=== PATIENT | female | born 1935 | race Caucasian/White ===

== ENCOUNTER 2024-07-12 17:29 | Emergency (ER) | payer OTHER, MEDICAID, SELFPAY ==
[2024-07-12 17:34] VITALS: BP 106/50; PULSE 71; RESP 19; TEMP 36.7; O2SAT 99
--- NOTE | 2024-07-12 18:02 | XR_ITS ---
Examination: Knee bilateral, 6 views Technique: Knee AP, lateral, oblique each knee total 6 views Date and time of exam: July 12, 2024 1832 hours INDICATIONS: Bilateral knee pain several days. FINDINGS: Severe osteopenia Bilateral advanced tricompartment osteoarthritis Bilateral mild to moderate knee effusions No fracture or dislocation involving either knee IMPRESSION: Bilateral advanced tricompartment osteoarthritis
[2024-07-12 18:34] VITALS: BP 113/58; PULSE 100; PULSE 59; RESP 15; RESP 18; TEMP 36.6; O2SAT 98; O2SAT 99; BMI 22.6
--- NOTE | 2024-07-12 18:34 | PC.NURSE ---
Addendum entered by Rajinder Nunes RN 07/12/24 18:46: @1834- Per EMS rpeorts, pt has modified DNR code status. Original Note: BIBA; per EMS reports, Pt coming from alf; the doctors there were concerned for her knee pain & swelling bilaterally. Pt has arthritis. MD's wanted ER to evaluate pt's arthritis and make sure nothing is broken. Pt has hx of DM, A.fib, pacemaker, hypertension, & bipolar disorder. Pt connected to monitor at this time.
--- NOTE | 2024-07-12 19:13 | PD.EDADULT ---
ED General RME/HPI General Chief complaint: General Adult/Misc Complain Stated complaint: KNEE PAIN Time Seen by Provider: 07/12/24 18:01 Arrival date/time: 07/12/24 17:29 CC: Bilateral knee pain insidious onset approximately 36 hours ago patient states she has a history of arthritis with the pain send patient denies fall repetitive motion. Is hard of. Localized pain is 1-2 on a 10 scale patient present to the ER via EMS reports stable vital signs after she refused to have x-rays done there because of the pain was too great in her knees. Patient denies any other symptoms including chest pain shortness of breath or difficulty breathing. Related Data Home Medications ?Medication ?Instructions ?Recorded ?Confirmed lithium carbonate 300 mg 300 mg PO BID ##0 03/23/14 04/04/23 tablet,extended release (Lithobid) valsartan 320 mg tablet (Diovan) 320 mg PO QDAY #0 tabs 03/23/14 04/04/23 aspirin 81 mg tablet,delayed 81 mg PO QDAY ##0 06/19/15 04/04/23 release rivaroxaban 10 mg tablet (Xarelto) 10 mg PO QDAY #0 tabs 10/07/15 04/04/23 atenolol 25 mg tablet 25 mg PO QDAY 06/09/20 04/04/23 lovastatin 40 mg tablet 40 mg PO HS 06/09/20 04/04/23 metformin 500 mg tablet 500 mg PO QDAY 06/09/20 04/04/23 donepezil 5 mg tablet (Aricept) 5 mg PO QDAY 04/04/23 04/04/23 megestrol 400 mg/10 mL (40 mg/mL) 400 mg PO BID 04/04/23 04/04/23 oral suspension paroxetine HCl 10 mg tablet (Paxil) 10 mg PO HS 04/04/23 04/04/23 Previous Rx's ?Medication ?Instructions ?Recorded neomycin-bacitracn Zn-polymyx 3.5 1 applicatio topical BID #15 grams 12/17/22 mg-400 unit-5,000 unit/gram top oint (Triple Antibiotic) doxycycline monohydrate 100 mg 100 mg PO BID #20 caps 04/22/24 capsule Allergies Allergy/AdvReac Type Severity Reaction Status Date / Time Sulfa (Sulfonamide Allergy Severe Hives Verified 01/15/23 11:16 Antibiotics) levofloxacin [From Levaquin] AdvReac Severe NAUSEA,VOMI Verified 01/15/23 11:16 TING Review of Systems Review of Systems Narrative Review of Systems: GEN: No fever, no chills, no weight loss EYES: No discharge, no visual changes, no pain HEENT: No ear pain, no congestion, no sore throat PULM: No shortness of breath, no cough, no congestion CV: No chest pain, no dyspnea on exertion, no palpitations GI: No nausea, no vomiting, no diarrhea, no pain, no constipation : No frequency, no urgency, no dysuria MUSC/SKEL: No joint pain, no back pain SKIN: No rash PSYCH: No hallucinations, no depression HEME/LYMPH: No easy bleeding or bruising tendencies NEURO: No weakness, no headache Past Medical History Past Medical History NEUROLOGIC: Positive Dementia; Negative Neurological Disorders, Cerebrovascular Accident, Transient Ischemic Attacks (TIA), Alzheimer's Disease, Parkinson's Disease, Brain Tumor, Meningitis, Seizures, Epilepsy, Multiple Sclerosis, Cerebral Palsy, Amyotrophic Lateral Sclerosis (ALS/Lynnette Gehrig's), Guillain-[place] Syndrome, Spina Bifida, Paralysis, Peripheral Neuropathy, Goodman's Palsy, Subdural Hematoma, Migraine, Head Trauma, Spinal Cord Injury or Traumatic Brain Injury CARDIAC: Positive Cardiac Disorders (A. Fib), Coronary Artery Disease, Hypercholesterolemia and Hypertension; Negative Myocardial Infarction, Cardiac Arrhythmia, Atrial Fibrillation, Angina, Heart Murmur, Atherosclerotic Heart Disease, Peripheral Vascular Disease, Aneurysm, Congestive Heart Failure, Congenital Heart Disease, Valvular Heart Disease, Rheumatic Fever, Cardiomyopathy, Edema, Pericarditis, Cellulitis, Deep Vein Thrombosis, Hypotension or Varicose Veins RESPIRATORY: Negative Chronic Obstructive Pulmonary Disease (COPD), Asthma, Bronchitis, Emphysema, Pneumonia, Pulmonary Fibrosis, Cystic Fibrosis, Tuberculosis, Pulmonary Embolism, Pulmonary Edema or Sleep Apnea GASTROINTESTINAL: Negative Gastrointestinal Disorders, Hepatitis, Cirrhosis, Pancreatitis, Celiac Disease, Gall Bladder Disease, Gastrointestinal Bleed, Esophageal Varices, Aponte's Esophagus, Colitis, Ulcerative Colitis, Diverticulitis, Diverticulosis, Ulcer, Colorectal Cancer, Irritable Bowel, Crohn's Disease, Obstructive Bowel, Hiatal Hernia, Hemorrhoids or Gastroesophageal Reflux Disease GENITOURINARY: Negative Genitourinary Disorders, Renal Disease, Kidney Stones, Polycystic Kidney Disease, Neurogenic Bladder, Inguinal Hernia, Dialysis, Prostate Cancer or Benign Prostatic Hyperplasia REPRODUCTIVE: Negative Breast Cancer, Endometriosis, Genital Herpes, Gonorrhea, Pelvic Inflammatory Disease, Syphilis or Testicular Cancer MUSCULOSKELETAL: Negative Musculoskeletal Disorders, Myasthenia Gravis, Marfan's Syndrome, Bone Cancer, Arthritis, Rheumatoid Arthritis, Osteoporosis, Degenerative Disk Disease, Gout, Scoliosis, Carpal Tunnel Syndrome, Fibromyalgia, Fractures, Degenerative Joint Disease, Osteomyelitis or Poliovirus ENT: Positive Deafness; Negative Cataracts, Glaucoma, Blind, Retinal Detachment, Macular Degeneration, Ear Infection, Head Trauma or Eye Prosthesis ENDOCRINE: Positive Endocrine Disorders and Diabetes Mellitus Type 2; Negative Diabetes Mellitus Type 1, Hypoglycemia, Rosman's Syndrome, Jay's Disease, Hyperthyroidism, Hypothyroidism, Parathyroid Disease, Pituitary Disease, Systemic Lupus Erythematosus, Syndrome of Inappropriate Antidiuretic Hormone (SIADH), Adrenal Disease or Graves' Disease HEMATOLOGIC: Negative Blood Disorders, Anemia, Leukemia, Hemophilia, Thalassemia, Sickle Cell Disease or Clotting Problems PSYCHO/SOCIAL: Positive Bipolar Disorder, Depression and Anxiety; Negative Psychiatric Problems, Schizophrenia, Recreational Drug Use, Behavior Problems, Self-Mutilation, Attention Deficit Disorder, Attention Deficit Hyperactivity Disorder, Depression, Post Traumatic Stress Disorder or Eating Disorder OTHER HISTORY: Positive Falls; Negative Hospitalization, Autoimmune Disease, Down Syndrome, Autism, Developmental Delay, Shingles, Blood Transfusions, Blood Transfusion Reaction, Anesthesia Reactions, Organ Transplant, Chemotherapy, Radiation Therapy, Hyperbaric Therapy, MRSA, VRSA, Vancomycin-Resistant Enterococci, Human Immunodeficiency Virus (HIV), Chicken Pox, Measles, Mumps, Rubella ([place] Measles), Pertussis, Clostridium Difficile, Cancer, Breast Cancer, Cervical Cancer, Colorectal Cancer, Lung Cancer, Ovarian Cancer, Prostate Cancer or Testicular Cancer Family History FAMILY HISTORY: Negative Family Psychiatric Problems, Family Respiratory Disorders, Family Cardiac Disorders, Family Gastrointestinal Problems, Family Cancer, Family Surgery or Family Anesthesia Reaction Surgical History SURGICAL: Positive Pacemaker; Negative Cardiac Surgery, Open Heart Surgery, Coronary Artery Bypass Graft, Valve Replacement, Vascular Surgery, Coronary Stent, Cardiac Catheterization, Angiogram, Auto Implanted Cardiovert Defib, Carotid Endarterectomy, Endocrine Surgery, Thyroidectomy, Ear Surgery, Tympanostomy Tube, Eye Surgery, Nose Surgery, Oral Surgery, Tonsillectomy, Adenoidectomy, Cochlear Implant, Corneal Transplant, Throat Surgery, Abdominal Surgery, Tracheostomy, Gastric Bypass Surgery, Gastrostomy, Bowel Surgery, Nephrectomy, Transurethral Resection, Joint Replacement, Amputation, Open Reduction Internal Fixation, Arthroscopy, Neurologic Surgery, Brain Shunt, Mastectomy, Lumpectomy, Hysterectomy, Tubal Ligation, Section or Organ Transplant Social History SMOKING STATUS: Never smoker SECOND HAND EXPOSURE: No SUBSTANCE USE: does not use ED Exam Narrative Physical exam: [General: Frail, deconditioned but not in any acute distress Head normocephalic HEENT: Within acceptable limits Neck is supple nontender Chest equal chest rise nontender to palpation Respiratory: Clear to auscultation no wheezes crackles or rubs CV: Rate rhythm is regular no murmurs rubs or clicks Abdomen is soft nontender no masses positive bowel sounds all 4 quadrants Back: No CVA tenderness no spinous process tenderness from cervical spine thoracic and lumbar spine Skin: Intact no petechiae rash induration ulceration or crepitus Extremities: Moving all extremity against resistance cap refill less than 2 seconds neurosensory intact Neuro: Awake alert oriented x3 Glascow coma 15 no focal deficits] Course Quality Measures none Orders Category Date Time Status XR knee BI 3V Stat Exams 07/12/24 18:02 Completed Vital Signs Vital signs: Vital Signs Temperature 98.1 F 07/12/24 17:34 Pulse Rate 71 07/12/24 17:34 Respiratory Rate 19 07/12/24 17:34 Blood Pressure 106/50 L 07/12/24 17:34 Pulse Oximetry (%) 99 07/12/24 17:34 Oxygen Delivery Method Room Air 07/12/24 17:34 MDM Patient data External records reviewed:: [facility] previous records and EMS form Clinical information provided by:: patient and EMS Social determinants that could affect healthcare access:: none Patient has the following chronic illnesses:: Arthritis hypertension diabetes on blood thinners How is presenting disease/condition affected by chronic disease/condition?: uneffected by Evaluation data The following diagnostics were reviewed and interpreted by me:: radiology exam(s) Lab and/or radiology exams considered but not ordered:: Knee shows significant osteopenia with osteoarthritis. Interpretation Summary: Arthritis of the knees no acute fracture Medications Medications considered but not ordered:: None Medication administrations:: None Consultations Consultation(s) initiated? (list below): No Diagnosis Differential Diagnosis ED Complaint MDM: Bilateral knee fracture, septic joint, osteoarthritis Most likely diagnosis given after review of the tests above:: Osteoarthritis Admission Indicated Admission indicated?: not indicated Explain why admission is indicated or not indicated:: Stable for outpatient follow-up Admission Request Was there a request for admission?: No Disposition Plan Disposition Plan: Discharge Discharge Attestation Discharge Attestation: The patient and all family members were given an opportunity to ask questions and understood the discharge instructions. Discharge instructions specifically effects, indications for sooner follow up or return to the emergency department, and the expected course of current diagnosis. Patient condition: Stable Medical Decision Making Differential Diagnosis Differential Diagnosis: Bilateral knee fracture, septic joint, osteoarthritis Discharge Plan Plan Patient Disposition: HOME (Self Care) Patient condition on transfer: Stable Prescriptions/Referrals Prescriptions/Med Rec: No Action lithium carbonate [Lithobid] 300 MG tablet extended release 300 mg PO BID Qty: 0 valsartan [Diovan] 320 MG tablet 320 mg PO QDAY Qty: 0 aspirin 81 mg Tablet,Delayed Release (Dr/Ec) 81 mg PO QDAY Qty: 0 Xarelto 10 MG tablet 10 mg PO QDAY Qty: 0 metformin 500 mg Tablet 500 mg PO QDAY lovastatin 40 mg Tablet 40 mg PO HS atenolol 25 mg Tablet 25 mg PO QDAY Triple Antibiotic 3.5mg-400 unit- 5,000 unit/gram ointment 1 applicatio TOPICAL BID Qty: 15 0RF megestrol 400 mg/10 mL (40 mg/mL) Suspension 400 mg PO BID paroxetine HCl [Paxil] 10 mg Tablet 10 mg PO HS donepezil [Aricept] 5 mg Tablet 5 mg PO QDAY doxycycline monohydrate 100 mg capsule 100 mg PO BID Qty: 20 0RF Referrals: No Primary/Family,Physician [Primary Care Provider] - In 1 week Problem List Clinical Impression: Knee pain Patient/Caregiver Discharge Instructions Education Materials: Knee Pain Print Language: [place] Stand Alone Forms: Susu Award Info., Patient Portal Info Letter
[2024-07-12 20:52] VITALS: BP 126/55; PULSE 60; RESP 18; O2SAT 99
--- NOTE | 2024-07-12 20:55 | PC.NURSE ---
[facility]
== END 2024-07-12 20:55 | disposition home or self-care (01) ==
PROVIDERS: Emergency Provider Emergency Medicine
DX: M17.0 Bilateral primary osteoarthritis of knee (principal)
CPT/HCPCS: 73562; 99283